=== PATIENT | male | born 1955 | race African-American/Black ===

== ENCOUNTER 2018-07-22 17:21 | Emergency (ER) | payer MEDICAID ==
[~2018-07-22] VITALS: Ht 177.8 cm; Wt 86.0 kg
[2018-07-22] MEDS ORDERED: SODIUM CHLORIDE 0.9% 500 ML IV ONE (17:51)
[2018-07-22] MEDS ORDERED: LORAZEPAM 2MG/ML CPJ IV ONE (18:00)
[2018-07-22] MEDS ORDERED: HYDRALAZINE 20MG/ML VIAL IV ONE (18:00)
[2018-07-22 18:59] LABS: CHLORIDE 109 mEq/L (98-107)
[2018-07-22 19:03] LABS: BASOPHILS % 0.6 % (0.0-2.0); EOSINOPHILS % 6.1 % (0.0-5.0); HEMATOCRIT. 42.4 % (42.0-52.0); HEMOGLOBIN. 14.3 g/dL (14.0-18.0); LYMPHOCYTES % 31.4 % (20.0-50.0); MEAN CORPUSCULAR HEMOGLOBIN 29.9 pg (28.0-32.0); MEAN CORPUSCULAR VOLUME 88.7 fL (80.0-94.0); MEAN PLATELET VOLUME 9.2 fl (7.4-10.4); NEUTROPHILS % 47.9 % (40.0-76.0); PLATELET 265 x1000/uL (130-400); RED BLOOD CELL COUNT 4.78 mill/uL (4.7-6.1); RED CELL DISTRIBUTION WIDTH 15.2 % (11.6-14.6)
[2018-07-22 19:04] LABS: ETHANOL BLOOD < 10 mg/dL
[2018-07-22 19:08] LABS: PROTHROMBIN TIME 10.2 sec (9.1-11.1)
[2018-07-22 19:12] LABS: CARBAMAZEPINE < 0.5 ug/mL (4-12); PHENOBARBITAL < 2.1 ug/mL (15.0-40.0); VALPROIC ACID < 3.0 ug/mL (50-100)
[2018-07-22 19:51] LABS: CLARITY URINE CLEAR (CLEAR); COLOR URINE YELLOW (YELLOW); KETONES URINE NEGATIVE (NEGATIVE); LEUKOCYTE ESTERASE URINE NEGATIVE (NEGATIVE); NITRITE URINE NEGATIVE (NEGATIVE); OCCULT BLOOD URINE NEGATIVE (NEGATIVE); PH URINE 5.5 (4.5-8.0); PROTEIN URINE 1+ (NEGATIVE); SPECIFIC GRAVITY URINE 1.012 (1.005-1.030); UROBILINOGEN URINE 0.2 E.U./dL (0.2-1.0)
[2018-07-22] MEDS ORDERED: PHENYTOIN SODIUM EXTENDED 100MG CAPSULE PO ONE (20:00)
[2018-07-22] MEDS ORDERED: POTASSIUM CHLORIDE 20MEQ TABLET SR PO ONE (20:00)
[2018-07-22 20:01] LABS: *AMPHETAMINES SCREEN URINE NEGATIVE (NEGATIVE); *BARBITURATES SCREEN URINE NEGATIVE (NEGATIVE); *BENZODIAZEPINES SCREEN URINE NEGATIVE (NEGATIVE); *COCAINE SCREEN URINE NEGATIVE (NEGATIVE); CANNABINOID URINE SCREEN NEGATIVE (NEGATIVE); METHADONE URINE SCREEN NEGATIVE (NEGATIVE); OPIATES URINE SCREEN NEGATIVE (NEGATIVE); PHENCYCLIDINE URINE SCREEN NEGATIVE (NEGATIVE)
[2018-07-22 21:49] VITALS: BP 166/93
== END 2018-07-22 22:10 | disposition home or self-care (01) ==
LOC: ER 18:45
DX: G40.909 Epilepsy, unspecified, not intractable, without status epilepticus (principal); E87.6 Hypokalemia; I10 Essential (primary) hypertension; I69.354 Hemiplegia and hemiparesis following cerebral infarction affecting left non-dominant side; T42.0X5A Adverse effect of hydantoin derivatives, initial encounter; Y92.9 Unspecified place or not applicable; Z99.3 Dependence on wheelchair
CPT/HCPCS: 36415; 70450; 71045; 80053; 80156; 80165; 80184; 80185; 80305; 81003; 84443; 84484; 85025; 85610; 93005; 96374; 96375; 99285; G0482; J0360; J2060; J7040

== ENCOUNTER 2018-10-02 07:10 | Emergency (ER) | payer MEDICAID ==
[~2018-10-02] VITALS: Ht 175.3 cm; Wt 80.0 kg
[2018-10-02] MEDS ORDERED: LISI2.5T47 PO (07:15)
[2018-10-02] MEDS ORDERED: METO25TA6 PO (07:15)
[2018-10-02] MEDS ORDERED: PHEN50TA2 PO (07:15)
[2018-10-02] MEDS ORDERED: ASPIRIN 81MG TABLET PO ONE ×2 (07:30→08:45)
[2018-10-02] MEDS ORDERED: ONDANSETRON HCL 4MG/2ML INJ ONE (07:58)
[2018-10-02] MEDS ORDERED: MORPHINE SULFATE 4 MG/ML CPJ (NOT FOR IM USE) IV ONE (07:58)
[2018-10-02] MEDS ORDERED: ASPIRIN 81MG TABLET ONE (08:02)
[2018-10-02 08:05] LABS: BASOPHILS % 0.5 % (0.0-2.0); EOSINOPHILS % 4.2 % (0.0-5.0); HEMATOCRIT. 43.5 % (42.0-52.0); HEMOGLOBIN. 14.3 g/dL (14.0-18.0); LYMPHOCYTES % 33.8 % (20.0-50.0); MEAN CORPUSCULAR HEMOGLOBIN 29.9 pg (28.0-32.0); MEAN PLATELET VOLUME 8.5 fl (7.4-10.4); MONOCYTES % 7.7 % (2.0-8.0); NEUTROPHILS % 53.8 % (40.0-76.0); PLATELET 314 x1000/uL (130-400); RED BLOOD CELL COUNT 4.78 mill/uL (4.7-6.1); RED CELL DISTRIBUTION WIDTH 15.3 % (11.6-14.6)
[2018-10-02] MEDS ORDERED: NITROGLYCERIN OINT 1GM/INCH UDPKT TD ONE ×2 (08:05→08:45)
[2018-10-02 08:12] VITALS: BP 157/86
[2018-10-02 08:38] LABS: CHLORIDE 108 mEq/L (98-107)
[2018-10-02] MEDS ORDERED: ONDANSETRON HCL 4MG/2ML INJ IV ONE ×2 (08:45)
== END 2018-10-02 08:17 | disposition short-term general hospital (02) ==
LOC: ER 07:24 → CANBEDREQ 08:57
DX: I21.3 ST elevation (STEMI) myocardial infarction of unspecified site (principal); I10 Essential (primary) hypertension; R56.9 Unspecified convulsions; I69.320 Aphasia following cerebral infarction
CPT/HCPCS: 36415; 71045; 80053; 83880; 84484; 85025; 93005; 99285; J2270; J2405

== ENCOUNTER 2018-11-15 05:54 | Inpatient (IN) | payer MEDICAID ==
[~2018-11-15] VITALS: Ht 175.3 cm; Wt 69.4 kg
[~2018-11-15 05:54] MED LIST: LISI2.5T47 PO; METO25TA6 PO; PHEN50TA2 PO
[2018-11-15 06:36] LABS: BASOPHILS % 1.1 % (0.0-2.0); HEMATOCRIT. 39.2 % (42.0-52.0); HEMOGLOBIN. 13.2 g/dL (14.0-18.0); LYMPHOCYTES % 38.4 % (20.0-50.0); MEAN CORPUSCULAR HEMOGLOBIN 30.6 pg (28.0-32.0); MEAN CORPUSCULAR VOLUME 90.9 fL (80.0-94.0); MEAN PLATELET VOLUME 8.5 fl (7.4-10.4); MONOCYTES % 11.2 % (2.0-8.0); NEUTROPHILS % 39.3 % (40.0-76.0); PLATELET 268 x1000/uL (130-400); RED BLOOD CELL COUNT 4.31 mill/uL (4.7-6.1); RED CELL DISTRIBUTION WIDTH 15.2 % (11.6-14.6)
[2018-11-15 06:37] LABS: CHLORIDE 111 mEq/L (98-107)
[2018-11-15 06:41] LABS: ETHANOL BLOOD < 10 mg/dL
[2018-11-15 06:44] LABS: LDL CHOLESTEROL 68 mg/dL (5-100)
[2018-11-15 06:50] LABS: INR 1.1; PROTHROMBIN TIME 10.7 sec (9.1-11.1)
[2018-11-15 07:36] LABS: CLARITY URINE CLEAR (CLEAR); COLOR URINE YELLOW (YELLOW); KETONES URINE NEGATIVE (NEGATIVE); LEUKOCYTE ESTERASE URINE NEGATIVE (NEGATIVE); NITRITE URINE NEGATIVE (NEGATIVE); OCCULT BLOOD URINE NEGATIVE (NEGATIVE); PROTEIN URINE NEGATIVE (NEGATIVE); SPECIFIC GRAVITY URINE 1.015 (1.005-1.030); UROBILINOGEN URINE 0.2 E.U./dL (0.2-1.0)
[2018-11-15 07:43] LABS: *AMPHETAMINES SCREEN URINE NEGATIVE (NEGATIVE); *BARBITURATES SCREEN URINE NEGATIVE (NEGATIVE); *BENZODIAZEPINES SCREEN URINE NEGATIVE (NEGATIVE)
[2018-11-15 07:44] LABS: *COCAINE SCREEN URINE NEGATIVE (NEGATIVE); CANNABINOID URINE SCREEN NEGATIVE (NEGATIVE); METHADONE URINE SCREEN NEGATIVE (NEGATIVE); OPIATES URINE SCREEN NEGATIVE (NEGATIVE); PHENCYCLIDINE URINE SCREEN NEGATIVE (NEGATIVE)
[2018-11-15] MEDS ORDERED: ONDANSETRON HCL 4MG/2ML INJ IV PRN (09:15)
[2018-11-15] MEDS ORDERED: DIPHENHYDRAMINE 50MG/ML VIAL IV PRN (09:15)
[2018-11-15] MEDS ORDERED: MAGNESIUM/ALUMINUM HYDROXIDE/SIMETHICONE 30ML UDC PO PRN (09:15)
[2018-11-15] MEDS ORDERED: CLONIDINE 0.1MG TABLET PO PRN (09:15)
[2018-11-15] MEDS ORDERED: IPRATROPIUM/ALBUTEROL 0.5-3(2.5)MG/3ML NEB INH PRN (09:15)
[2018-11-15] MEDS ORDERED: ACETAMINOPHEN 325MG TABLET PO PRN (09:15)
[2018-11-15] MEDS ORDERED: HYDROCODONE/ACETAMINOPHEN 5/325MG TABLET PO PRN (09:15)
[2018-11-15] MEDS ORDERED: LORAZEPAM 2MG/ML CPJ IV PRN (09:15)
[2018-11-15] MEDS ORDERED: DOCUSATE SODIUM 100MG CAPSULE PO PRN (09:15)
[2018-11-15] MEDS ORDERED: GUAIFENESIN 200MG/10ML SUGAR FREE UDC PO PRN (09:15)
[2018-11-15 15:38] LABS: CHLORIDE 108 mEq/L (98-107)
[2018-11-15] MEDS ORDERED: PHEN100C12 PO (16:46)
[2018-11-15] MEDS ORDERED: ASPI-1160 MT (16:46)
[2018-11-15] MEDS ORDERED: EZET10TA26 MT (16:46)
[2018-11-15] MEDS ORDERED: OMEP10CA4 MT (16:46)
[2018-11-15] MEDS ORDERED: CLOP75TA33 MT (16:46)
[2018-11-15] MEDS ORDERED: ASPIRIN 81MG EC TABLET PO NR (16:48)
[2018-11-15] MEDS ORDERED: LISINOPRIL 2.5MG TABLET PO NR (16:49)
[2018-11-15] MEDS ORDERED: METOPROLOL TARTRATE 25MG TABLET PO NR (16:49)
[2018-11-15] MEDS ORDERED: MORPHINE SULFATE 4 MG/ML CPJ (NOT FOR IM USE) IV PRN (18:30)
[2018-11-15] MEDS ORDERED: NA PHOS,M-B/NA PHOS,DI-BA ENEMA 118ML PR PRN (21:00)
[2018-11-15] MEDS ORDERED: LEVETIRACETAM 500MG PREMIX 100 ML IV SCH (21:35)
[2018-11-16] VITALS (8 sets, daily range): BP systolic 117–153; BP diastolic 71–91
[2018-11-16] MEDS: SODIUM CHLORIDE 0.45% 1,000 ML IV SCH ×2 (05:23→20:58)
[2018-11-16 05:51] LABS: BASOPHILS % 0.9 % (0.0-2.0); EOSINOPHILS % 9.2 % (0.0-5.0); HEMATOCRIT. 42.5 % (42.0-52.0); HEMOGLOBIN. 14.3 g/dL (14.0-18.0); LYMPHOCYTES % 31.6 % (20.0-50.0); MEAN CORPUSCULAR HEMOGLOBIN 30.7 pg (28.0-32.0); MEAN PLATELET VOLUME 8.6 fl (7.4-10.4); MONOCYTES % 11.1 % (2.0-8.0); NEUTROPHILS % 47.2 % (40.0-76.0); PLATELET 272 x1000/uL (130-400); RED BLOOD CELL COUNT 4.67 mill/uL (4.7-6.1); RED CELL DISTRIBUTION WIDTH 15.3 % (11.6-14.6)
[2018-11-16 05:56] LABS: CHLORIDE 109 mEq/L (98-107)
[2018-11-16 06:04] LABS: LDL CHOLESTEROL 80 mg/dL (5-100)
[2018-11-16 06:05] LABS: HDL CHOLESTEROL 56 mg/dL (40-59); T4 FREE 0.76 ng/dL (0.76-1.46)
[2018-11-16] MEDS ORDERED: ASPIRIN 81MG EC TABLET PO SCH ×2 (09:00→12:00)
[2018-11-16] MEDS ORDERED: LISINOPRIL 2.5MG TABLET PO SCH (09:00)
[2018-11-16] MEDS ORDERED: ENOXAPARIN 40MG/0.4ML SYR SUBCUT SCH (10:00)
[2018-11-16] MEDS ORDERED: METOPROLOL TARTRATE 25MG TABLET PO SCH (10:00)
[2018-11-16] MEDS ORDERED: LEVETIRACETAM 500MG PREMIX 100 ML IV SCH ×2 (10:00→21:00)
[2018-11-16] MEDS: LISINOPRIL 2.5MG TABLET PO SCH (11:47)
[2018-11-16] MEDS: ENOXAPARIN 40MG/0.4ML SYR SUBCUT SCH (11:48)
[2018-11-16] MEDS: METOPROLOL TARTRATE 25MG TABLET PO SCH (20:58)
[2018-11-16] MEDS: LEVETIRACETAM 500MG in SODIUM CHLORIDE 0.9% 100ML IV SCH (21:27)
[2018-11-17] VITALS (11 sets, daily range): BP systolic 128–153; BP diastolic 66–106
[2018-11-17] MEDS: METOPROLOL TARTRATE 25MG TABLET PO SCH ×2 (08:35→20:34)
[2018-11-17] MEDS: LISINOPRIL 2.5MG TABLET PO SCH (08:35)
[2018-11-17] MEDS: ENOXAPARIN 40MG/0.4ML SYR SUBCUT SCH (08:35)
[2018-11-17] MEDS: ASPIRIN 81MG EC TABLET PO SCH (08:36)
[2018-11-17] MEDS: LEVETIRACETAM 500MG in SODIUM CHLORIDE 0.9% 100ML IV SCH ×2 (08:36→20:34)
[2018-11-17] MEDS: SODIUM CHLORIDE 0.45% 1,000 ML IV SCH (15:11)
[2018-11-18] VITALS (7 sets, daily range): BP systolic 114–136; BP diastolic 69–87
[2018-11-18 07:07] LABS: BASOPHILS % 0.9 % (0.0-2.0); EOSINOPHILS % 10.7 % (0.0-5.0); HEMATOCRIT. 39.2 % (42.0-52.0); HEMOGLOBIN. 13.1 g/dL (14.0-18.0); LYMPHOCYTES % 33.3 % (20.0-50.0); MEAN CORPUSCULAR HEMOGLOBIN 30.4 pg (28.0-32.0); MEAN CORPUSCULAR VOLUME 91.2 fL (80.0-94.0); MONOCYTES % 14.2 % (2.0-8.0); NEUTROPHILS % 40.9 % (40.0-76.0); PLATELET 231 x1000/uL (130-400); RED BLOOD CELL COUNT 4.29 mill/uL (4.7-6.1)
[2018-11-18 07:46] LABS: CHLORIDE 111 mEq/L (98-107)
[2018-11-18] MEDS: SODIUM CHLORIDE 0.45% 1,000 ML IV SCH (08:25)
[2018-11-18] MEDS: LEVETIRACETAM 500MG in SODIUM CHLORIDE 0.9% 100ML IV SCH (08:51)
[2018-11-18] MEDS: LISINOPRIL 2.5MG TABLET PO SCH (08:57)
[2018-11-18] MEDS: ASPIRIN 81MG EC TABLET PO SCH (08:58)
[2018-11-18] MEDS: METOPROLOL TARTRATE 25MG TABLET PO SCH (08:58)
[2018-11-18] MEDS: ENOXAPARIN 40MG/0.4ML SYR SUBCUT SCH (08:59)
== END 2018-11-18 11:47 | disposition home or self-care (01) | DRG 45 ==
LOC: ER 05:57 → EDBEDREQ 07:15 → EDBEDREQTM 07:15 → 3WST 11-16 07:11 → ENRESERV 11-16 10:17 → EDBEDREQ 11-16 10:54 → 3WST 11-16 18:58
PROVIDERS: ADMIT Internal Medicine; ATTEND Internal Medicine
DX: I63.9 Cerebral infarction, unspecified (principal); G93.41 Metabolic encephalopathy; I69.354 Hemiplegia and hemiparesis following cerebral infarction affecting left non-dominant side; E44.1 Mild protein-calorie malnutrition; E86.0 Dehydration; I10 Essential (primary) hypertension; F12.90 Cannabis use, unspecified, uncomplicated; G40.909 Epilepsy, unspecified, not intractable, without status epilepticus; Z79.02 Long term (current) use of antithrombotics/antiplatelets; Z82.49 Family history of ischemic heart disease and other diseases of the circulatory system
CPT/HCPCS: 36415; 71045; 80048; 80061; 80305; 82962; 83721; 83735; 84439; 84443; 84484; 92610; 93005; 93306; 93880; 97162; 97165; 99285; J1650; J1953; J7040; J7050; J7620

== ENCOUNTER 2019-11-15 13:46 | Emergency (ER) | payer MEDICAID ==
[~2019-11-15] VITALS: Ht 172.7 cm; Wt 70.0 kg
[~2019-11-15 13:46] MED LIST changes: +ASPI-1160 MT; +CLOP75TA33 MT; +EZET10TA26 MT; +OMEP10CA5 MT; +PHEN100C12 PO
[2019-11-15] MEDS ORDERED: LIDOCAINE HCL 1% 20ML VIAL (Pyxis) INJ INFIL ONE (16:15)
[2019-11-15] MEDS: CEFTRIAXONE SODIUM 1 G/VIAL IM ONE ×2 (17:08→17:26)
[2019-11-15] MEDS: KETOROLAC 60MG/2ML VIAL IM ONE ×2 (17:09→17:26)
[2019-11-15 17:32] LABS: BASOPHILS % 0.8 % (0.0-2.0); HEMOGLOBIN. 12.7 g/dL (14.0-18.0); LYMPHOCYTES % 25.8 % (20.0-50.0); MEAN CORPUSCULAR HEMOGLOBIN 29.9 pg (28.0-32.0); MEAN CORPUSCULAR VOLUME 89.7 fL (80.0-94.0); MEAN PLATELET VOLUME 8.8 fl (7.4-10.4); MONOCYTES % 11.3 % (2.0-8.0); NEUTROPHILS % 51.1 % (40.0-76.0); PLATELET 305 x1000/uL (130-400); RED BLOOD CELL COUNT 4.23 mill/uL (4.7-6.1); RED CELL DISTRIBUTION WIDTH 15.6 % (11.6-14.6)
[2019-11-15 17:40] LABS: CHLORIDE 111 mEq/L (98-107); PARTIAL THROMBOPLASTIN TIME 27.6 sec (23.4-31.0); PROTHROMBIN TIME 10.4 sec (9.6-11.0)
[2019-11-15 18:20] VITALS: BP 135/60
== END 2019-11-15 18:21 | disposition home or self-care (01) ==
LOC: ER 14:05
DX: S81.001A Unspecified open wound, right knee, initial encounter (principal); I10 Essential (primary) hypertension; Z79.899 Other long term (current) drug therapy; X58.XXXA Exposure to other specified factors, initial encounter; Y93.89 Activity, other specified; Y92.89 Other specified places as the place of occurrence of the external cause; Y99.8 Other external cause status
CPT/HCPCS: 36415; 73560; 80053; 83605; 85025; 86850; 86900; 93005; 93970; 99285; J0696; J1885; J3490

== ENCOUNTER 2022-04-18 00:35 | Inpatient (IN) | payer MEDICARE, MEDICAID ==
[~2022-04-18] VITALS: Ht 175.3 cm; Wt 67.1 kg
[~2022-04-18 00:35] MED LIST changes: -PHEN50TA2 PO; +PHEN50TA4 PO
[2022-04-18 01:57] LABS: CLARITY URINE CLEAR (CLEAR); COLOR URINE YELLOW (YELLOW); KETONES URINE 1+ (NEGATIVE); LEUKOCYTE ESTERASE URINE NEGATIVE (NEGATIVE); NITRITE URINE NEGATIVE (NEGATIVE); OCCULT BLOOD URINE TRACE (NEGATIVE); PROTEIN URINE 1+ (NEGATIVE); SPECIFIC GRAVITY URINE 1.012 (1.005-1.030); UROBILINOGEN URINE 0.2 E.U./dL (0.2-1.0)
[2022-04-18 02:07] LABS: *AMPHETAMINES SCREEN URINE NEGATIVE (NEGATIVE); *BARBITURATES SCREEN URINE NEGATIVE (NEGATIVE); *BENZODIAZEPINES SCREEN URINE PRESUMTIVE POSITIVE (NEGATIVE); *COCAINE SCREEN URINE NEGATIVE (NEGATIVE); CANNABINOID URINE SCREEN NEGATIVE (NEGATIVE); METHADONE URINE SCREEN NEGATIVE (NEGATIVE); OPIATES URINE SCREEN NEGATIVE (NEGATIVE); PHENCYCLIDINE URINE SCREEN NEGATIVE (NEGATIVE)
[2022-04-18 02:47] LABS: CHLORIDE 110 mEq/L (98-107)
[2022-04-18 02:51] LABS: HEMATOCRIT. 41.1 % (42.0-52.0); HEMOGLOBIN. 13.1 g/dL (14.0-18.0); MEAN CORPUSCULAR HEMOGLOBIN 28.9 pg (28.0-32.0); MEAN CORPUSCULAR VOLUME 90.7 fL (80.0-94.0); MEAN PLATELET VOLUME 9.2 fl (7.4-10.4); PLATELET 254 x1000/uL (130-400); RED BLOOD CELL COUNT 4.53 mill/uL (4.7-6.1); RED CELL DISTRIBUTION WIDTH 16.1 % (11.6-14.6)
[2022-04-18 02:57] LABS: ETHANOL BLOOD < 10 mg/dL; VALPROIC ACID <3.0 ug/mL ug/mL (50-100)
[2022-04-18] MEDS ORDERED: LEVETIRACETAM 500MG PREMIX 100 ML IV ONE (03:00)
[2022-04-18 04:09] LABS: CARBAMAZEPINE < 0.5 ug/mL (4-12); PHENOBARBITAL < 2.1 ug/mL (15.0-40.0)
[2022-04-18 04:38] LABS: PLATELET ESTIMATE NORMAL
[2022-04-18] MEDS: SODIUM CHLORIDE 0.45% 1,000 ML IV SCH ×2 (05:30→17:25)
[2022-04-18] MEDS ORDERED: ACETAMINOPHEN 325MG TABLET PO PRN (05:30)
[2022-04-18] MEDS ORDERED: ONDANSETRON HCL 4MG/2ML INJ IV PRN (05:30)
[2022-04-18] MEDS ORDERED: MAGNESIUM/ALUMINUM HYDROXIDE/SIMETHICONE 30ML UDC PO PRN (05:30)
[2022-04-18] MEDS ORDERED: DOCUSATE SODIUM 100MG CAPSULE PO PRN (05:30)
[2022-04-18] MEDS ORDERED: GUAIFENESIN 200MG/10ML SUGAR FREE UDC PO PRN (05:30)
[2022-04-18] MEDS ORDERED: TRAMADOL 50MG TABLET PO PRN (05:30)
[2022-04-18] MEDS: AMLODIPINE 10MG TABLET PO SCH (06:00)
[2022-04-18] MEDS: PHENYTOIN SODIUM 100MG/2ML VIAL IV SCH ×3 (06:36→21:04)
[2022-04-18 11:46] VITALS: BP 145/77
[2022-04-18 12:00] VITALS: BP 145/77
[2022-04-18] MEDS ORDERED: PHENYTOIN SODIUM 500 MG in SODIUM CHLORIDE 0.9% 50 ML IV ONE (12:15)
[2022-04-18] MEDS: CLOPIDOGREL 75MG TABLET PO SCH (12:45)
[2022-04-18] MEDS ORDERED: PHENYTOIN SODIUM 500 MG in SODIUM CHLORIDE 0.9% 50 ML IV NR (14:00)
[2022-04-18 15:43] VITALS: BP 151/65
[2022-04-18 16:55] LABS: CHLORIDE 109 mEq/L (98-107)
[2022-04-18 20:00] VITALS: BP_SYST 105; BP_SYST 140; BP_DIAS 63; BP_DIAS 74
[2022-04-19] VITALS: BP 112/55
[2022-04-19 04:00] VITALS: BP 118/55
[2022-04-19] MEDS: PHENYTOIN SODIUM 100MG/2ML VIAL IV SCH ×3 (05:49→21:16)
[2022-04-19] MEDS: PANTOPRAZOLE 40MG DR TABLET PO SCH (06:40)
[2022-04-19 08:00] VITALS: BP 97/68
[2022-04-19] MEDS ORDERED: CLOPIDOGREL 75MG TABLET PO SCH (09:00)
[2022-04-19] MEDS: AMLODIPINE 10MG TABLET PO SCH (09:00)
[2022-04-19] MEDS: METOPROLOL TARTRATE 25MG TABLET PO SCH (09:00)
[2022-04-19] MEDS: LISINOPRIL 20MG TABLET PO SCH (09:00)
[2022-04-19] MEDS: SODIUM CHLORIDE 0.45% 1,000 ML IV SCH ×2 (09:09→20:11)
[2022-04-19] MEDS: ASPIRIN 81MG TABLET PO SCH (09:09)
[2022-04-19] MEDS: EZETIMIBE 10MG TABLET PO SCH (09:10)
[2022-04-19] MEDS: CLOPIDOGREL 75MG TABLET PO SCH (09:10)
[2022-04-19 12:00] VITALS: BP 144/62
[2022-04-19 16:00] VITALS: BP 123/60
[2022-04-19] MEDS: RISPERIDONE 0.5MG TABLET PO SCH (21:16)
[2022-04-20 00:49] VITALS: BP 125/51
[2022-04-20 04:00] VITALS: BP 138/70
[2022-04-20] MEDS: PHENYTOIN SODIUM 100MG/2ML VIAL IV SCH ×2 (05:30→13:33)
[2022-04-20] MEDS: PANTOPRAZOLE 40MG DR TABLET PO SCH (06:46)
[2022-04-20 08:00] VITALS: BP 128/51
[2022-04-20 08:37] LABS: HEMATOCRIT 36.3 % (42.0-52.0); HEMOGLOBIN 12.1 g/dL (14.0-18.0); MEAN CORPUSCULAR HEMOGLOBIN 29.5 pg (28.0-32.0); MEAN CORPUSCULAR VOLUME 88.2 fL (80.0-94.0); PLATELET 201 x1000/uL (130-400); RED BLOOD CELL COUNT 4.11 mill/uL (4.7-6.1); RED CELL DISTRIBUTION WIDTH 15.8 % (11.6-14.6)
[2022-04-20] MEDS: ASPIRIN 81MG TABLET PO SCH (08:38)
[2022-04-20] MEDS: EZETIMIBE 10MG TABLET PO SCH (08:38)
[2022-04-20] MEDS: CLOPIDOGREL 75MG TABLET PO SCH (08:38)
[2022-04-20] MEDS: RISPERIDONE 0.5MG TABLET PO SCH ×2 (08:38→22:02)
[2022-04-20] MEDS: METOPROLOL TARTRATE 25MG TABLET PO SCH (08:39)
[2022-04-20] MEDS: LISINOPRIL 20MG TABLET PO SCH (08:39)
[2022-04-20] MEDS: AMLODIPINE 10MG TABLET PO SCH (08:39)
[2022-04-20 08:52] LABS: CHLORIDE 109 mEq/L (98-107)
[2022-04-20 09:08] LABS: CREATINE KINASE 384 IU/L (39-308)
[2022-04-20] MEDS: SODIUM CHLORIDE 0.45% 1,000 ML IV SCH (09:25)
[2022-04-20] MEDS ORDERED: KCL 20MEQ/100ML PREMIX 100 ML IV NR ×2 (10:30→11:30)
[2022-04-20 12:00] VITALS: BP 117/59
[2022-04-20 16:00] VITALS: BP 115/57
[2022-04-20] MEDS: PHENYTOIN SODIUM EXTENDED 100MG CAPSULE PO SCH (17:52)
[2022-04-20 20:44] VITALS: BP 138/56
[2022-04-21 00:24] VITALS: BP 140/60
[2022-04-21] MEDS: SODIUM CHLORIDE 0.45% 1,000 ML IV SCH ×2 (01:37→14:34)
[2022-04-21 04:00] VITALS: BP 133/58
[2022-04-21] MEDS: PANTOPRAZOLE 40MG DR TABLET PO SCH (06:19)
[2022-04-21 07:23] LABS: HEMOGLOBIN 12.1 g/dL (14.0-18.0); MEAN CORPUSCULAR HEMOGLOBIN 29.8 pg (28.0-32.0); MEAN CORPUSCULAR VOLUME 88.3 fL (80.0-94.0); PLATELET 187 x1000/uL (130-400); RED BLOOD CELL COUNT 4.07 mill/uL (4.7-6.1); RED CELL DISTRIBUTION WIDTH 15.8 % (11.6-14.6)
[2022-04-21 07:29] LABS: CHLORIDE 110 mEq/L (98-107)
[2022-04-21 08:00] VITALS: BP 126/68
[2022-04-21] MEDS: LISINOPRIL 20MG TABLET PO SCH (09:00)
[2022-04-21] MEDS: ASPIRIN 81MG TABLET PO SCH (09:03)
[2022-04-21] MEDS: PHENYTOIN SODIUM EXTENDED 100MG CAPSULE PO SCH (09:04)
[2022-04-21] MEDS: AMLODIPINE 10MG TABLET PO SCH (09:06)
[2022-04-21] MEDS: EZETIMIBE 10MG TABLET PO SCH (09:07)
[2022-04-21] MEDS: RISPERIDONE 0.5MG TABLET PO SCH (09:07)
[2022-04-21] MEDS: METOPROLOL TARTRATE 25MG TABLET PO SCH (09:07)
[2022-04-21] MEDS: CLOPIDOGREL 75MG TABLET PO SCH (09:07)
[2022-04-21] MEDS ORDERED: POTASSIUM CHLORIDE 20MEQ TABLET SR PO NR (10:15)
[2022-04-21] MEDS ORDERED: NALOXONE HCL 0.4MG/ML VIAL IV PRN (10:30)
[2022-04-21 12:00] VITALS: BP 125/59
[2022-04-21 15:21] VITALS: BP 125/59
== END 2022-04-21 18:34 | disposition home health service (06) | DRG 101 ==
LOC: ER 00:35 → 7WST 04:26 → ENRESERV 09:54
PROVIDERS: ADMIT Hospitalist; ATTEND Hospitalist
DX: G40.901 Epilepsy, unspecified, not intractable, with status epilepticus (principal); E44.1 Mild protein-calorie malnutrition; E87.2 Acidosis; I69.354 Hemiplegia and hemiparesis following cerebral infarction affecting left non-dominant side; D64.9 Anemia, unspecified; E87.6 Hypokalemia; I10 Essential (primary) hypertension; K21.9 Gastro-esophageal reflux disease without esophagitis; I25.2 Old myocardial infarction; Z68.21 Body mass index [BMI] 21.0-21.9, adult; Z79.02 Long term (current) use of antithrombotics/antiplatelets; Z79.899 Other long term (current) drug therapy
CPT/HCPCS: 36415; 71045; 80048; 80053; 80156; 80165; 80184; 80185; 80305; 80320; 81003; 82550; 82962; 85025; 85027; 92523; 92610; 93005; 97162; 97166; 99285; C1893; J1165; J1953; J3480; G0480

== ENCOUNTER 2025-01-16 13:05 | Emergency (ER) | payer MEDICARE, MEDICAID ==
[~2025-01-16] VITALS: Ht 175.3 cm; Wt 73.0 kg
[2025-01-16 13:10] VITALS: O2SAT 100
[2025-01-16 13:12] VITALS: BP 143/76; PULSE 62; RESP 18; TEMP 36.7; O2SAT 99
[2025-01-16 15:12] LABS: DIFFERENTIAL COMMENT 0; EOSINOPHILS % 5.2 % (0.0-5.0); HEMATOCRIT. 35.4 % (42.0-52.0); HEMOGLOBIN. 11.8 g/dL (14.0-18.0); LYMPHOCYTES % 17.2 % (20.0-50.0); MEAN CORPUSCULAR HEMOGLOBIN 29.6 pg (28.0-32.0); MEAN CORPUSCULAR HGB CONC 33.3 g/dL (31.0-37.0); MEAN CORPUSCULAR VOLUME 88.8 fL (80.0-94.0); MEAN PLATELET VOLUME 9.6 fl (7.4-10.4); MONOCYTES % 13.1 % (2.0-8.0); NEUTROPHILS % 63.5 % (40.0-76.0); PLATELET 239 x1000/uL (130-400); RED BLOOD CELL COUNT 3.99 mill/uL (4.7-6.1); RED CELL DISTRIBUTION WIDTH 18.1 % (11.6-14.6); WHITE BLOOD COUNT 6.6 x1000/uL (4.5-11.0)
[2025-01-16 15:15] LABS: CHLORIDE 111 mEq/L (98-107); SODIUM 147 mEq/L (136-145)
[2025-01-16 15:16] LABS: CALCIUM 9.1 mg/dL (8.7-10.4); CARBON DIOXIDE 28 mEq/L (21-32)
[2025-01-16 15:21] LABS: CREATININE 1.4 mg/dL (0.6-1.3); GLUCOSE 87 mg/dL (70-105); UREA NITROGEN BLOOD 13 mg/dL (9-23)
[2025-01-16 15:33] LABS: CLARITY URINE CLEAR (CLEAR); COLOR URINE YELLOW (YELLOW); GLUCOSE URINE NEGATIVE (NEGATIVE); KETONES URINE NEGATIVE (NEGATIVE); LEUKOCYTE ESTERASE URINE NEGATIVE (NEGATIVE); NITRITE URINE NEGATIVE (NEGATIVE); OCCULT BLOOD URINE NEGATIVE (NEGATIVE); PH URINE 5.5 (4.5-8.0); PROTEIN URINE TRACE (NEGATIVE); SPECIFIC GRAVITY URINE 1.011 (1.005-1.030); UROBILINOGEN URINE 0.2 E.U./dL (0.2-1.0)
[2025-01-16 15:47] LABS: BACTERIA URINE NONE SEEN; RBC URINE NONE SEEN /hpf (0-2); SQUAMOUS EPITHELIAL CELL URINE RARE /lpf (RARE/1+); WBC URINE NONE SEEN /hpf (0-2)
[2025-01-16] MEDS ORDERED: CEPH500C2 MT (16:36)
[2025-01-16] MEDS ORDERED: TAMS-54 MT (16:37)
== END 2025-01-16 16:48 | disposition home or self-care (01) ==
LOC: ER 13:05
DX: N30.90 Cystitis, unspecified without hematuria (principal); I25.2 Old myocardial infarction; Z79.899 Other long term (current) drug therapy; Z98.890 Other specified postprocedural states
CPT/HCPCS: 36415; 80048; 81003; 85025; 99283